=== PATIENT | female | born 1960 | race Caucasian/White ===

== ENCOUNTER → 2016-09-05 | Outpatient (CLI) | payer BC ==
--- NOTE | ~2016-09-05 | MY29 ---
[facility] A Service of [facility] RADIOLOGY TEXT RESULTS PATIENT: JAYASHREE CREWS LOCATION: [facility] : 56 UNIT #: [id number] AGE: [address]: JANNIE MOULTON MD SEX: F ORDER DR: [id number] [facility] [place] [address] [place], [place] [address] [id number] O MR#: [id number] Acc #: [id number] NAME: JAYASHREE CREWS : 1960 SEX: F STUDY DATE/TIME: 09/05/2016 9:29 UNIT: [facility] ROOM: STUDY DESCRIPTION: [facility] SCREENING W/ CAD BILAT Attending Physician: Jannie Moulton Referring Physician: Jannie Moulton Ordering Physician: Emilie Moulton M.D. Primary Care Physician: Jannie Moulton MEDICAL IMAGING REPORT This report is preliminary unless electronic signature is present EXAM Digital screening mammogram with CAD INDICATIONS Routine screening. PROCEDURE Bilateral CC and MLO views obtained on a digital mammography unit FDA-approved CAD device utilized. COMPARISON: 07/08/2008 FINDINGS Scattered fibroglandular density. No dominant mass or suspicious calcification. IMPRESSION Negative screening mammogram. Screen interval 1 year suggested. Patients over the age of 40 are entered into a reminder system with target due date for the next mammogram. A result letter will also be sent to the patient. BIRADS: 1 - negative Dictated by... Bernard Diamond M.D. THIS IS AN ELECTRONICALLY VERIFIED REPORT Bernard Diamond M.D. at 09/14/2016 7:12 AM [facility] A Service [facility] RADIOLOGY TEXT RESULTS PATIENT: JAYASHREE CREWS LOCATION: [facility] : 56 UNIT #: [id number] AGE: [address]: JANNIE MOULTON MD SEX: F ORDER DR: Gopi TD: 09/13/2016 14:12 JOB #: [id number] MEDICAL IMAGING REPORT Page 1 of 1 COPY
== END | disposition home or self-care (01) ==
LOC: CWCC 09-02 09:00
DX: Z12.31 Encounter for screening mammogram for malignant neoplasm of breast (principal)
CPT/HCPCS: G0202